=== PATIENT | male | born 1985 | race Caucasian/White ===

== ENCOUNTER 2017-10-24 18:49 | Emergency (ER) | payer BC ==
[~2017-10-24] VITALS: Ht 193 cm; Wt 99.8 kg
[2017-10-24] MEDS ORDERED: HYDROcodone-ACET 5/325MG TAB PO ONE (19:45)
[2017-10-24] MEDS ORDERED: KETOROLAC TROMETH 30 MG/ML 1ML VIAL IV ONE (19:45)
[2017-10-24 20:02] VITALS: BP 124/71
== END 2017-10-24 20:39 | disposition home or self-care (01) ==
LOC: ER 18:49
DX: S82.402A Unspecified fracture of shaft of left fibula, initial encounter for closed fracture (principal); W22.8XXA Striking against or struck by other objects, initial encounter; Y93.89 Activity, other specified; Y99.8 Other external cause status; Y92.89 Other specified places as the place of occurrence of the external cause
CPT/HCPCS: 29515; 73610; 96374; 99284; J1885